=== PATIENT | female | born 1950 ===

== ENCOUNTER 2020-01-01 17:22 | Inpatient (IN) | payer MEDICAID, MEDICARE, OTHER ==
[2020-01-02 00:06] VITALS: BP 126/68
[2020-01-02] MEDS ORDERED: Lactulose 10 Gm/15 mL 30mL UDC PO PRN (00:23)
[2020-01-02] MEDS ORDERED: BUDESONIDE INH SCH (09:00)
[2020-01-02] MEDS ORDERED: [UNRECOGNIZED DRUG - OTHER] INH SCH (09:00)
[2020-01-02] MEDS ORDERED: FORMOTEROL FUMARATE INH SCH (09:00)
[2020-01-02] MEDS: NYSTATIN 100000 UNITS/GM POWD TP SCH ×2 (10:36→17:13)
[2020-01-02] MEDS: Albuterol Nebulizer 2.5mg/3mL HHN SCH ×2 (13:17→19:00)
--- NOTE | 2020-01-02 13:50 | Consultation ---
DATE OF CONSULTATION: 01/02/2020 INTERNAL MEDICINE CONSULTATION HISTORY OF PRESENT ILLNESS: We have a 69-year-old female who is transferred from [facility] for suicidal ideations. The patient was homeless in [place]. The patient has rectal pain. No nausea, vomiting, abdominal pain, or diarrhea. PAST MEDICAL HISTORY: 1. COPD. 2. Hypertension. 3. Questionable history of angina. PAST SURGICAL HISTORY: None. MEDICATIONS: List reviewed. ALLERGIES: None. SOCIAL HISTORY: The patient smokes. PHYSICAL EXAMINATION: VITAL SIGNS: Temperature is 98.1, pulse 96, respirations 20, and blood pressure is 129/75. HEENT: Normocephalic and atraumatic head exam. NECK: Supple. CARDIOVASCULAR: Regular rate and rhythm. LUNGS: Decreased breath sounds. ABDOMEN: Soft, nontender. EXTREMITIES: No edema, cyanosis or clubbing. ASSESSMENT AND PLAN: 1. Suicidal ideations. 2. Chronic obstructive pulmonary disease. 3. Hypertension. 4. Rectal pain. The patient will be started on medications, have reviewed the medical records, have discussed the care plan with the nursing staff. The patient will be started on nystatin powder for the perirectal area. The patient will continue with DuoNeb q.6 hours for COPD. The patient will continue with Norvasc 10 mg p.o. b.i.d. for blood pressure. JOB# [id number]
[2020-01-02] MEDS: Albuterol Nebulizer 2.5mg/3mL HHN PRN (16:14)
[2020-01-02] MEDS: guaiFENesin 200 MG/10 ML UDC PO PRN (17:14)
[2020-01-02] MEDS: Budesonide 0.5 Mg/2 mL Ud HHN SCH (19:00)
--- NOTE | 2020-01-02 20:29 | Psychiatric Evaluation ---
DATE OF SERVICE: HISTORY OF PRESENT ILLNESS: The patient is a 69-year-old female transferred here from [facility] on a 5250 for danger to self. The patient apparently stated that she wanted to kill herself and everyone else. The patient is extremely paranoid, responding to internal stimuli, feels that gangs such as the [employer] and [employer] wished to murder her. States that she has been compliant with her medications, but was generally unclear as to what they were exactly. MENTAL STATUS EXAMINATION: GENERAL APPEARANCE AND BEHAVIOR: The patient is resting comfortably in bed, not in acute distress. Good eye contact, cooperative in interview. Speech is normal, rate, rhythm and tone. Mood and affect: The patient describes her mood as anxious and depressed. Affect is congruent. Thought process and thought content linear and logical. The patient endorsing suicidal and homicidal ideations with command hallucinations. Insight and judgment is poor. DIAGNOSTIC IMPRESSION: Schizophrenia, undifferentiated type. PLAN: We would recommend starting the patient on her home medications and titrating while maintaining daily monitoring. JOB# [id number]
[2020-01-03] MEDS: Albuterol Nebulizer 2.5mg/3mL HHN SCH ×5 (01:17→20:14)
[2020-01-03] MEDS: Budesonide 0.5 Mg/2 mL Ud HHN SCH ×2 (06:39→19:30)
[2020-01-03] MEDS: NYSTATIN 100000 UNITS/GM POWD TP SCH ×2 (09:02→17:15)
--- NOTE | 2020-01-03 12:04 | Internal Medicine Prog Note ---
Internal Medicine Subjective - Subjective Service Date: 01/03/20 Patient seen and examined:: with staff Patient is:: awake, verbal, interactive Internal Medicine Objective - Results Recent Labs: Laboratory Last Values POC Glucose 88 MG/DL (70 - 105) 01/02/20 05:30 - Physical Exam Vitals and I&O: Vital Signs Temp 97.4 F 01/03/20 06:04 Pulse 96 01/03/20 09:00 Resp 20 01/03/20 06:04 BP 135/86 01/03/20 09:00 Pulse Ox 94 01/03/20 06:04 Intake & Output 01/02/20 01/03/20 01/03/20 18:59 06:59 18:59 Intake Total 1000 480 Balance 1000 480 Intake: Oral 1000 480 Other: # Voids 4 2 # Bowel Movements 0 0 Stool Characteristics Soft Soft Active Medications: Current Medications Acetaminophen (Tylenol) 650 mg PO Q4H PRN PRN Reason: Pain (Mild 1-3) Stop: 03/02/20 00:08 Last Admin: 01/03/20 06:40 Dose: 650 mg Albuterol Sulfate (Albuterol 2.5mg/3ml Neb Ud) 2.5 mg HHN Q6HRT [facility] Stop: 03/02/20 12:59 Last Admin: 01/03/20 06:40 Dose: 2.5 mg Albuterol Sulfate (Albuterol 2.5mg/3ml Neb Ud) 2.5 mg HHN Q4HRT PRN PRN Reason: Cough Stop: 03/02/20 10:41 Last Admin: 01/02/20 16:14 Dose: 2.5 mg Amlodipine Besylate (Norvasc) 10 mg PO BID [facility] Stop: 03/02/20 08:59 Last Admin: 01/03/20 09:00 Dose: 10 mg Benztropine Mesylate (Cogentin) 0.5 mg PO BID [facility] Stop: 03/02/20 08:59 Last Admin: 01/03/20 09:01 Dose: 0.5 mg Budesonide (Pulmicort) 0.5 mg HHN BIDRT [facility] Stop: 03/02/20 18:59 Last Admin: 01/03/20 06:39 Dose: 0.5 mg Docusate Sodium (Colace) 200 mg PO BID [facility] Stop: 03/02/20 08:59 Last Admin: 01/03/20 09:01 Dose: 200 mg Fluconazole (Diflucan) 100 mg PO DAILY [facility] Stop: 03/02/20 12:04 Last Admin: 01/03/20 09:01 Dose: 100 mg Guaifenesin (Robitussin) 200 mg PO Q4HR PRN PRN Reason: Cough or Congestion Stop: 03/02/20 11:58 Last Admin: 01/02/20 17:14 Dose: 200 mg Haloperidol (Haldol) 5 mg PO BID [facility]; Protocol Stop: 03/03/20 08:59 Last Admin: 01/03/20 09:01 Dose: 5 mg Lactulose (Cephulac) 30 gm PO TID PRN PRN Reason: constipation Stop: 03/02/20 08:59 Last Admin: 01/03/20 07:19 Dose: 30 gm Lorazepam (Ativan) 0.5 mg PO Q4HR PRN; Protocol PRN Reason: Agitation Stop: 02/01/20 00:08 Last Admin: 01/03/20 09:02 Dose: 0.5 mg Nystatin (Nystop) 100 units TP BID [facility] Stop: 03/02/20 08:59 Last Admin: 01/03/20 09:02 Dose: 100 units Zolpidem Tartrate (Ambien) 5 mg PO HS PRN PRN Reason: Insomnia Stop: 03/02/20 00:08 Last Admin: 01/02/20 21:11 Dose: 5 mg General: NAD HEENT: NC/AT Neck: Supple Lungs: CTAB Cardiovascular: RRR, Normal S1, Normal S2 Abdomen: soft, non-tender Extremities: clear Neurological: no change Internal Medicine Assmt/Plan - Assessment Assessment: 1. Tinea 2. HTN 3. COPD - Plan Plan: started diflucan 100 mg po daily started nyastatin powder continue duonebs prn for copd connor ulloa
--- NOTE | 2020-01-03 17:32 | Progress Notes ---
DATE: 01/03/2020 SUBJECTIVE: A 69-year-old female, currently coming from [facility], apparently noting history of "mental issues," "extensive voices," endorsing a high level of psychological distress, turmoil, also making statements that she wanted to kill herself and everybody else, still responding to internal stimuli, stating that she is homeless. 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 Medications were reviewed. Labs were reviewed. Vitals were reviewed. Actually, there is some mild EPS. Pill rolling tremor is noted. MENTAL STATUS EXAMINATION: Wearing a mask, a headscarf. Fair eye contact. Ongoing depression, melancholy, hopeless, despairing, ongoing voices. ASSESSMENT: This is a 69-year-old female with ongoing perceptual disturbances, depression, voices. PLAN: We will continue to monitor. I will be transitioning her over to Zyprexa, especially given the pill rolling tremors. We will monitor closely. Continue inpatient hospitalization. JOB# [id number]
[2020-01-04] MEDS: Albuterol Nebulizer 2.5mg/3mL HHN SCH ×5 (01:00→19:10)
[2020-01-04] MEDS: guaiFENesin 200 MG/10 ML UDC PO PRN ×3 (02:56→23:00)
[2020-01-04] MEDS: Budesonide 0.5 Mg/2 mL Ud HHN SCH ×2 (07:10→19:05)
[2020-01-04] MEDS: NYSTATIN 100000 UNITS/GM POWD TP SCH ×2 (08:39→16:46)
--- NOTE | 2020-01-04 13:46 | Internal Medicine Prog Note ---
Internal Medicine Subjective - Subjective Service Date: 01/04/20 Patient seen and examined:: without staff Patient is:: awake, verbal, interactive Internal Medicine Objective - Results Recent Labs: Laboratory Last Values POC Glucose 88 MG/DL (70 - 105) 01/02/20 05:30 - Physical Exam Vitals and I&O: Vital Signs Temp 96.8 F 01/04/20 06:08 Pulse 90 01/04/20 08:39 Resp 19 01/04/20 06:08 BP 127/73 01/04/20 08:39 Pulse Ox 97 01/04/20 06:08 Intake & Output 01/03/20 01/04/20 01/04/20 18:59 06:59 18:59 Intake Total 1000 Balance 1000 Intake: Oral 1000 Other: # Voids 3 # Bowel Movements 1 0 Stool Characteristics Soft Formed Soft Brown Active Medications: Current Medications Acetaminophen (Tylenol) 650 mg PO Q4H PRN PRN Reason: Pain (Mild 1-3) Stop: 03/02/20 00:08 Last Admin: 01/04/20 02:36 Dose: 650 mg Albuterol Sulfate (Albuterol 2.5mg/3ml Neb Ud) 2.5 mg HHN Q6HRT [facility] Stop: 03/02/20 12:59 Last Admin: 01/04/20 08:41 Dose: 2.5 mg Albuterol Sulfate (Albuterol 2.5mg/3ml Neb Ud) 2.5 mg HHN Q4HRT PRN PRN Reason: Cough Stop: 03/02/20 10:41 Last Admin: 01/02/20 16:14 Dose: 2.5 mg Amlodipine Besylate (Norvasc) 10 mg PO BID [facility] Stop: 03/02/20 08:59 Benztropine Mesylate (Cogentin) 0.5 mg PO BID [facility] Stop: 03/02/20 08:59 Last Admin: 01/04/20 08:40 Dose: 0.5 mg Budesonide (Pulmicort) 0.5 mg HHN BIDRT [facility] Stop: 03/02/20 18:59 Last Admin: 01/04/20 07:10 Dose: Not Given Docusate Sodium (Colace) 200 mg PO BID [facility] Stop: 03/02/20 08:59 Last Admin: 01/04/20 08:39 Dose: 200 mg Fluconazole (Diflucan) 100 mg PO DAILY [facility] Stop: 03/02/20 12:04 Last Admin: 01/04/20 08:39 Dose: 100 mg Guaifenesin (Robitussin) 200 mg PO Q4HR PRN PRN Reason: Cough or Congestion Stop: 03/02/20 11:58 Last Admin: 01/04/20 11:28 Dose: 200 mg Lactulose (Cephulac) 30 gm PO TID PRN PRN Reason: constipation Stop: 03/02/20 08:59 Last Admin: 01/03/20 07:19 Dose: 30 gm Lorazepam (Ativan) 0.5 mg PO Q4HR PRN; Protocol PRN Reason: Agitation Stop: 02/01/20 00:08 Last Admin: 01/03/20 21:21 Dose: 0.5 mg Nystatin (Nystop) 100 units TP BID [facility] Stop: 03/02/20 08:59 Last Admin: 01/04/20 08:39 Dose: 100 units Olanzapine (Zyprexa) 5 mg PO HS [facility]; Protocol Stop: 03/03/20 20:59 Zolpidem Tartrate (Ambien) 5 mg PO HS PRN PRN Reason: Insomnia Stop: 03/02/20 00:08 Last Admin: 01/03/20 20:15 Dose: 5 mg General: NAD HEENT: NC/AT Neck: Supple Lungs: CTAB Cardiovascular: RRR, Normal S1, Normal S2 Abdomen: soft, non-tender Extremities: clear Neurological: no change Other physical findings: erythematous area on pictures Internal Medicine Assmt/Plan - Assessment Assessment: 1. Tinea 2. HTN 3. COPD - Plan Plan: diflucan 100 mg po daily nyastatin powder continue duonebs prn for copd rash is improving slowly. will check lfts to monitor side effects of diflucan
--- NOTE | 2020-01-04 23:09 | Progress Notes ---
DATE: 01/04/2020 Case was discussed with staff of the patient, reviewed records. This is a 69-year-old female who was admitted on 01/01/2020, transferred from [facility] on a 5250 hold for danger to self. The patient reports that she wanted to kill herself and everyone else. The patient was very paranoid, responding to internal stimuli. She felt again that someone wants to murder her. She stated that she has been compliant with her medication, was generally unclear to what they were exactly. The patient when I talked to her, she reported that she is schizophrenic that she is delusional. She believed people are trying to harm her. MENTAL STATUS EXAMINATION: The patient is appropriately dressed, not very well groomed. She was intrusive. She was alert, unable to tell me the date, where she is, why she is delusional. She believes people are trying to harm her. She is unpredictable, impulsive, looking disheveled. Dr. Case initiated her on Haldol that was discontinued and changed to Zyprexa 5 mg at bedtime yesterday, changed by Dr. Sanchez yesterday. The patient continues to be unpredictable, impulsive, unable to make safe plan for self-care. No side effects with the medication, no sedation, no nausea. The patient with multiple prior hospitalizations. The patient was found yesterday to have pill rolling tremors. Today, she is doing better with ongoing psychotic symptoms and we will continue outpatient group therapy, milieu therapy, adjust medication as needed. JOB# [id number] JAMI
[2020-01-05] MEDS: Albuterol Nebulizer 2.5mg/3mL HHN SCH ×4 (01:15→18:10)
[2020-01-05] MEDS: Budesonide 0.5 Mg/2 mL Ud HHN SCH ×2 (06:49→18:18)
[2020-01-05] MEDS: NYSTATIN 100000 UNITS/GM POWD TP SCH ×2 (08:57→16:34)
--- NOTE | 2020-01-05 15:48 | Internal Medicine Prog Note ---
Internal Medicine Subjective - Subjective Service Date: 01/05/20 Patient seen and examined:: without staff Patient is:: awake, verbal, interactive Internal Medicine Objective - Results Recent Labs: Laboratory Last Values POC Glucose 88 MG/DL (70 - 105) 01/02/20 05:30 - Physical Exam Vitals and I&O: Vital Signs Temp 96.1 F 01/05/20 14:00 Pulse 102 01/05/20 14:00 Resp 20 01/05/20 14:00 BP 122/64 01/05/20 14:00 Pulse Ox 96 01/05/20 14:00 Intake & Output 01/04/20 01/05/20 01/05/20 18:59 06:59 18:59 Intake Total 1200 360 Balance 1200 360 Intake: Oral 1200 360 Other: # Voids 3 2 # Bowel Movements 1 0 Stool Characteristics Soft Soft Soft Active Medications: Current Medications Acetaminophen (Tylenol) 650 mg PO Q4H PRN PRN Reason: Pain (Mild 1-3) Stop: 03/02/20 00:08 Last Admin: 01/05/20 13:57 Dose: 650 mg Albuterol Sulfate (Albuterol 2.5mg/3ml Neb Ud) 2.5 mg HHN Q6HRT [facility] Stop: 03/02/20 12:59 Last Admin: 01/05/20 12:10 Dose: 2.5 mg Albuterol Sulfate (Albuterol 2.5mg/3ml Neb Ud) 2.5 mg HHN Q4HRT PRN PRN Reason: Cough Stop: 03/02/20 10:41 Last Admin: 01/02/20 16:14 Dose: 2.5 mg Amlodipine Besylate (Norvasc) 10 mg PO BID [facility] Stop: 03/02/20 08:59 Last Admin: 01/05/20 08:57 Dose: 10 mg Benztropine Mesylate (Cogentin) 0.5 mg PO BID [facility] Stop: 03/02/20 08:59 Last Admin: 01/05/20 08:57 Dose: 0.5 mg Budesonide (Pulmicort) 0.5 mg HHN BIDRT [facility] Stop: 03/02/20 18:59 Last Admin: 01/05/20 06:49 Dose: Not Given Docusate Sodium (Colace) 200 mg PO BID [facility] Stop: 03/02/20 08:59 Last Admin: 01/05/20 08:57 Dose: 200 mg Fluconazole (Diflucan) 100 mg PO DAILY [facility] Stop: 03/02/20 12:04 Last Admin: 01/05/20 08:57 Dose: 100 mg Guaifenesin (Robitussin) 200 mg PO Q4HR PRN PRN Reason: Cough or Congestion Stop: 03/02/20 11:58 Last Admin: 01/04/20 23:00 Dose: 200 mg Lactulose (Cephulac) 30 gm PO TID PRN PRN Reason: constipation Stop: 03/02/20 08:59 Last Admin: 01/03/20 07:19 Dose: 30 gm Lorazepam (Ativan) 0.5 mg PO Q4HR PRN; Protocol PRN Reason: Agitation Stop: 02/01/20 00:08 Last Admin: 01/04/20 16:46 Dose: 0.5 mg Nystatin (Nystop) 100 units TP BID [facility] Stop: 01/09/20 08:59 Last Admin: 01/05/20 08:57 Dose: 100 units Olanzapine (Zyprexa) 5 mg PO HS [facility]; Protocol Stop: 03/03/20 20:59 Zolpidem Tartrate (Ambien) 5 mg PO HS PRN PRN Reason: Insomnia Stop: 03/02/20 00:08 Last Admin: 01/04/20 20:13 Dose: 5 mg General: NAD HEENT: NC/AT Neck: Supple Lungs: CTAB Cardiovascular: RRR, Normal S1, Normal S2 Abdomen: soft, non-tender Extremities: clear Neurological: no change Internal Medicine Assmt/Plan - Assessment Assessment: 1. Tinea 2. HTN 3. COPD - Plan Plan: diflucan 100 mg po daily nyastatin powder continue duonebs prn for copd rash is improving slowly. will check lfts to monitor side effects of diflucan d/w r.n. wound is slowly healing will add keflex 500 mg tid
--- NOTE | 2020-01-05 17:15 | Progress Notes ---
DATE: FOLLOWUP PROGRESS NOTE Case was discussed with staff of the patient, reviewed records. The patient continues to be delusional beleives people are trying to harm her. She was unable to tell me the date. She reports that she has been tried on many medications and when I asked her about if she is aware of any specific medication that help her, she said they all help. She is currently on olanzapine 5 mg at bedtime. Apparently, it was not given yet. No side effects with the medication, no sedation, no nausea, no extrapyramidal symptoms and will continue outpatient group therapy, milieu therapy, and adjust the medication as needed. JOB# [id number] JAMI
[2020-01-06] MEDS: Albuterol Nebulizer 2.5mg/3mL HHN SCH ×4 (01:24→18:07)
[2020-01-06] MEDS: Budesonide 0.5 Mg/2 mL Ud HHN SCH ×2 (07:35→18:07)
[2020-01-06] MEDS: NYSTATIN 100000 UNITS/GM POWD TP SCH ×2 (08:25→17:02)
--- NOTE | 2020-01-06 09:42 | Progress Notes ---
DATE: 01/06/2020 SUBJECTIVE: Case was discussed with staff of the patient, reviewed records. The patient apparently did not start the Zyprexa until yesterday. She is on 5 mg at bedtime. Today, she is alert. She is more pleasant. She continues to feel people trying to harm her. However, she is much more animated today. She says she slept better, eating better. MENTAL STATUS EXAMINATION: Appropriately dressed, not well groomed, alert, and unable to tell me the day. She report that she believes people are trying to harm her. Thoughts are concrete. Speech is coherent. No suicide. No current intent to harm herself or anyone and no side effects with the medication, no sedation, no nausea, no extrapyramidal symptoms. ASSESSMENT: The patient is still gravely disabled and unable to make safe plan for self-care, still psychotic. PLAN: We will continue outpatient group therapy, milieu therapy, adjust medication as needed. JOB# [id number]
[2020-01-06] MEDS: guaiFENesin 200 MG/10 ML UDC PO PRN ×2 (14:06→23:18)
--- NOTE | 2020-01-06 14:14 | Internal Medicine Prog Note ---
Internal Medicine Subjective - Subjective Service Date: 01/06/20 Patient seen and examined:: without staff Patient is:: awake, verbal, interactive Internal Medicine Objective - Results Recent Labs: Laboratory Last Values POC Glucose 88 MG/DL (70 - 105) 01/02/20 05:30 - Physical Exam Vitals and I&O: Vital Signs Temp 97.9 F 01/06/20 05:57 Pulse 95 01/06/20 08:27 Resp 20 01/06/20 08:00 BP 130/78 01/06/20 08:27 Pulse Ox 96 01/06/20 05:57 Intake & Output 01/05/20 01/06/20 01/06/20 18:59 06:59 18:59 Intake Total 1320 120 Balance 1320 120 Intake: Oral 1080 120 Other 240 Other: # Voids 3 3 # Bowel Movements 0 0 Stool Characteristics Soft Soft Soft Brown Active Medications: Current Medications Acetaminophen (Tylenol) 650 mg PO Q4H PRN PRN Reason: Pain (Mild 1-3) Stop: 03/02/20 00:08 Last Admin: 01/06/20 09:49 Dose: 650 mg Albuterol Sulfate (Albuterol 2.5mg/3ml Neb Ud) 2.5 mg HHN Q6HRT [facility] Stop: 03/02/20 12:59 Last Admin: 01/06/20 13:10 Dose: 2.5 mg Albuterol Sulfate (Albuterol 2.5mg/3ml Neb Ud) 2.5 mg HHN Q4HRT PRN PRN Reason: Cough Stop: 03/02/20 10:41 Last Admin: 01/02/20 16:14 Dose: 2.5 mg Amlodipine Besylate (Norvasc) 10 mg PO BID [facility] Stop: 03/02/20 08:59 Last Admin: 01/06/20 08:27 Dose: 10 mg Benztropine Mesylate (Cogentin) 0.5 mg PO BID [facility] Stop: 03/02/20 08:59 Last Admin: 01/06/20 08:26 Dose: 0.5 mg Budesonide (Pulmicort) 0.5 mg HHN BIDRT [facility] Stop: 03/02/20 18:59 Last Admin: 01/06/20 07:35 Dose: 0.5 mg Cephalexin Monohydrate (Keflex) 500 mg PO QID [facility] Stop: 03/05/20 16:59 Last Admin: 01/06/20 13:10 Dose: 500 mg Docusate Sodium (Colace) 200 mg PO BID [facility] Stop: 03/02/20 08:59 Last Admin: 01/06/20 08:26 Dose: 200 mg Fluconazole (Diflucan) 100 mg PO DAILY [facility] Stop: 03/02/20 12:04 Last Admin: 01/06/20 08:27 Dose: 100 mg Guaifenesin (Robitussin) 200 mg PO Q4HR PRN PRN Reason: Cough or Congestion Stop: 03/02/20 11:58 Last Admin: 01/06/20 14:06 Dose: 200 mg Lactulose (Cephulac) 30 gm PO TID PRN PRN Reason: constipation Stop: 03/02/20 08:59 Last Admin: 01/03/20 07:19 Dose: 30 gm Lorazepam (Ativan) 0.5 mg PO Q4HR PRN; Protocol PRN Reason: Agitation Stop: 02/01/20 00:08 Last Admin: 01/04/20 16:46 Dose: 0.5 mg Nystatin (Nystop) 100 units TP BID [facility] Stop: 01/09/20 08:59 Last Admin: 01/06/20 08:25 Dose: 100 units Olanzapine (Zyprexa) 5 mg PO HS [facility]; Protocol Stop: 03/03/20 20:59 Last Admin: 01/05/20 20:18 Dose: 5 mg Zolpidem Tartrate (Ambien) 5 mg PO HS PRN PRN Reason: Insomnia Stop: 03/02/20 00:08 Last Admin: 01/05/20 20:18 Dose: 5 mg General: NAD HEENT: NC/AT Neck: Supple Lungs: CTAB Cardiovascular: RRR, Normal S1, Normal S2 Abdomen: soft, non-tender Extremities: clear Neurological: no change Internal Medicine Assmt/Plan - Assessment Assessment: 1. Tinea 2. HTN 3. COPD 4. Cellulitis - Plan Plan: continue keflex for cellulitis continue diflucan for tinea rash is slowly improving d/w r.n.
[2020-01-07] MEDS: Albuterol Nebulizer 2.5mg/3mL HHN SCH ×4 (01:00→18:39)
[2020-01-07] MEDS: Albuterol Nebulizer 2.5mg/3mL HHN PRN (03:29)
[2020-01-07] MEDS: Budesonide 0.5 Mg/2 mL Ud HHN SCH ×2 (07:06→18:38)
[2020-01-07] MEDS: NYSTATIN 100000 UNITS/GM POWD TP SCH ×2 (09:06→17:17)
--- NOTE | 2020-01-07 14:23 | Internal Medicine Prog Note ---
Internal Medicine Subjective - Subjective Service Date: 01/07/20 Patient is:: awake, verbal, interactive Internal Medicine Objective - Results Recent Labs: Laboratory Last Values POC Glucose 88 MG/DL (70 - 105) 01/02/20 05:30 - Physical Exam Vitals and I&O: Vital Signs Temp 97.2 F 01/07/20 06:16 Pulse 87 01/07/20 09:04 Resp 20 01/07/20 06:16 BP 125/76 01/07/20 09:04 Pulse Ox 97 01/07/20 06:16 Intake & Output 01/06/20 01/07/20 01/07/20 18:59 06:59 18:59 Intake Total 1100 120 Balance 1100 120 Intake: Oral 1100 120 Other: # Voids 3 1 # Bowel Movements 0 0 Stool Characteristics Soft Soft Brown Active Medications: Current Medications Acetaminophen (Tylenol) 650 mg PO Q4H PRN PRN Reason: Pain (Mild 1-3) Stop: 03/02/20 00:08 Last Admin: 01/07/20 13:57 Dose: 650 mg Albuterol Sulfate (Albuterol 2.5mg/3ml Neb Ud) 2.5 mg HHN Q6HRT [facility] Stop: 03/02/20 12:59 Last Admin: 01/07/20 13:57 Dose: 2.5 mg Albuterol Sulfate (Albuterol 2.5mg/3ml Neb Ud) 2.5 mg HHN Q4HRT PRN PRN Reason: Cough Stop: 03/02/20 10:41 Last Admin: 01/07/20 03:29 Dose: 2.5 mg Amlodipine Besylate (Norvasc) 10 mg PO BID [facility] Stop: 03/02/20 08:59 Last Admin: 01/07/20 09:04 Dose: 10 mg Benztropine Mesylate (Cogentin) 0.5 mg PO BID [facility] Stop: 03/02/20 08:59 Last Admin: 01/07/20 09:05 Dose: 0.5 mg Budesonide (Pulmicort) 0.5 mg HHN BIDRT [facility] Stop: 03/02/20 18:59 Last Admin: 01/07/20 07:06 Dose: Not Given Cephalexin Monohydrate (Keflex) 500 mg PO QID [facility] Stop: 03/05/20 16:59 Last Admin: 01/07/20 13:57 Dose: 500 mg Docusate Sodium (Colace) 200 mg PO BID [facility] Stop: 03/02/20 08:59 Last Admin: 01/07/20 09:06 Dose: 200 mg Fluconazole (Diflucan) 100 mg PO DAILY [facility] Stop: 03/02/20 12:04 Last Admin: 01/07/20 09:05 Dose: 100 mg Guaifenesin (Robitussin) 200 mg PO Q4HR PRN PRN Reason: Cough or Congestion Stop: 03/02/20 11:58 Last Admin: 01/06/20 23:18 Dose: 200 mg Lactulose (Cephulac) 30 gm PO TID PRN PRN Reason: constipation Stop: 03/02/20 08:59 Last Admin: 01/03/20 07:19 Dose: 30 gm Lorazepam (Ativan) 0.5 mg PO Q4HR PRN; Protocol PRN Reason: Agitation Stop: 02/01/20 00:08 Last Admin: 01/04/20 16:46 Dose: 0.5 mg Nystatin (Nystop) 100 units TP BID [facility] Stop: 01/09/20 08:59 Last Admin: 01/07/20 09:06 Dose: 100 units Olanzapine (Zyprexa) 5 mg PO HS [facility]; Protocol Stop: 03/03/20 20:59 Last Admin: 01/06/20 20:52 Dose: 5 mg Zolpidem Tartrate (Ambien) 5 mg PO HS PRN PRN Reason: Insomnia Stop: 03/02/20 00:08 Last Admin: 01/06/20 20:55 Dose: 5 mg General: NAD HEENT: NC/AT Neck: Supple Lungs: CTAB Cardiovascular: RRR, Normal S1, Normal S2 Abdomen: soft, non-tender Extremities: clear Neurological: no change Internal Medicine Assmt/Plan - Assessment Assessment: 1. Tinea 2. HTN 3. COPD 4. Cellulitis - Plan Plan: continue keflex for cellulitis continue diflucan for tinea rash is slowly improving d/w r.n.
[2020-01-07] MEDS: guaiFENesin 200 MG/10 ML UDC PO PRN (20:25)
--- NOTE | 2020-01-07 20:53 | Progress Notes ---
DATE: 01/07/2020 SUBJECTIVE: Case was discussed with staff of the patient, reviewed records. The patient continues to look disheveled, disorganized, internally preoccupied, paranoid, but however, she is much more pleasant. She is easy to redirect. She continues to report feeling people are trying to harm her, but she said these are not as prominent. They were able to find her a place to stay at [facility] to go there when she is stable. The patient is compliant with the medication, no side effects, no sedation, no nausea, no extrapyramidal symptoms. MENTAL STATUS EXAMINATION: Appropriately dressed, not very groomed. She is alert. She is not sure of the date. She believes people or trying to harm herself, thoughts are concrete. Speech is coherent. She denies any current intent to harm herself or anyone. No visual hallucination, no paranoia. No side effects, no sedation, no nausea, no extrapyramidal symptoms. ASSESSMENT AND PLAN: The patient continues to be gravely disabled and continues to need further stabilization and we will continue to work with the patient in group therapy, milieu therapy, and adjust the medication as needed. JOB# [id number]
[2020-01-08] MEDS: Albuterol Nebulizer 2.5mg/3mL HHN SCH ×4 (01:07→19:17)
[2020-01-08] MEDS: Budesonide 0.5 Mg/2 mL Ud HHN SCH ×2 (06:25→19:34)
[2020-01-08] MEDS: NYSTATIN 100000 UNITS/GM POWD TP SCH ×2 (11:04→17:58)
[2020-01-08] MEDS: guaiFENesin 200 MG/10 ML UDC PO PRN ×2 (11:11→17:57)
--- NOTE | 2020-01-08 12:30 | Internal Medicine Prog Note ---
Internal Medicine Subjective - Subjective Service Date: 01/08/20 Patient seen and examined:: without staff Patient is:: awake, verbal, interactive Per staff patient has:: no adverse event, no episodes of fall Internal Medicine Objective - Results Recent Labs: Laboratory Last Values POC Glucose 88 MG/DL (70 - 105) 01/02/20 05:30 - Physical Exam Vitals and I&O: Vital Signs Temp 98.1 F 01/08/20 06:25 Pulse 84 01/08/20 09:37 Resp 17 01/08/20 08:00 BP 118/64 01/08/20 09:37 Pulse Ox 98 01/08/20 06:25 Intake & Output 01/07/20 01/08/20 01/08/20 18:59 06:59 18:59 Intake Total 950 120 Balance 950 120 Intake: Oral 950 120 Other: # Voids 3 3 # Bowel Movements 1 Stool Characteristics Soft Soft Brown Brown Active Medications: Current Medications Acetaminophen (Tylenol) 650 mg PO Q4H PRN PRN Reason: Pain (Mild 1-3) Stop: 03/02/20 00:08 Last Admin: 01/08/20 11:03 Dose: 650 mg Albuterol Sulfate (Albuterol 2.5mg/3ml Neb Ud) 2.5 mg HHN Q6HRT [facility] Stop: 03/02/20 12:59 Last Admin: 01/08/20 06:08 Dose: 2.5 mg Albuterol Sulfate (Albuterol 2.5mg/3ml Neb Ud) 2.5 mg HHN Q4HRT PRN PRN Reason: Cough Stop: 03/02/20 10:41 Last Admin: 01/07/20 03:29 Dose: 2.5 mg Amlodipine Besylate (Norvasc) 10 mg PO BID [facility] Stop: 03/02/20 08:59 Last Admin: 01/08/20 09:37 Dose: 10 mg Benztropine Mesylate (Cogentin) 0.5 mg PO BID [facility] Stop: 03/02/20 08:59 Last Admin: 01/08/20 09:29 Dose: 0.5 mg Budesonide (Pulmicort) 0.5 mg HHN BIDRT [facility] Stop: 03/02/20 18:59 Last Admin: 01/08/20 06:25 Dose: 0.5 mg Cephalexin Monohydrate (Keflex) 500 mg PO QID [facility] Stop: 03/05/20 16:59 Last Admin: 01/08/20 09:28 Dose: 500 mg Docusate Sodium (Colace) 200 mg PO BID [facility] Stop: 03/02/20 08:59 Last Admin: 01/08/20 09:29 Dose: 200 mg Fluconazole (Diflucan) 100 mg PO DAILY [facility] Stop: 03/02/20 12:04 Last Admin: 01/08/20 09:28 Dose: 100 mg Guaifenesin (Robitussin) 200 mg PO Q4HR PRN PRN Reason: Cough or Congestion Stop: 03/02/20 11:58 Last Admin: 01/08/20 11:11 Dose: 200 mg Lactulose (Cephulac) 30 gm PO TID PRN PRN Reason: constipation Stop: 03/02/20 08:59 Last Admin: 01/03/20 07:19 Dose: 30 gm Lorazepam (Ativan) 0.5 mg PO Q4HR PRN; Protocol PRN Reason: Agitation Stop: 02/01/20 00:08 Last Admin: 01/04/20 16:46 Dose: 0.5 mg Nystatin (Nystop) 100 units TP BID [facility] Stop: 01/09/20 08:59 Last Admin: 01/08/20 11:04 Dose: 100 units Olanzapine (Zyprexa) 5 mg PO HS [facility]; Protocol Stop: 03/03/20 20:59 Last Admin: 01/07/20 20:25 Dose: 5 mg Zolpidem Tartrate (Ambien) 5 mg PO HS PRN PRN Reason: Insomnia Stop: 03/02/20 00:08 Last Admin: 01/07/20 20:26 Dose: 5 mg General: NAD HEENT: NC/AT Neck: Supple Lungs: CTAB Cardiovascular: RRR, Normal S1, Normal S2 Abdomen: soft, non-tender Extremities: clear Neurological: no change Internal Medicine Assmt/Plan - Assessment Assessment: 1. Tinea 2. HTN 3. COPD 4. Cellulitis - Plan Plan: continue keflex for cellulitis continue diflucan for tinea rash is slowly improving await results for LFTs Nutritional Asmnt/Malnutr-PDOC - Dietary Evaluation Malnutrition Findings (Please click <Entered> for more info): Nutritional Asmnt/Malnutrition Start: 01/07/20 11: 23 Text: Status: Complete Freq: Protocol: Document 01/07/20 15:19 JACKELIN (Rec: 01/07/20 15:22 JACKELIN [id number]) Nutritional Asmnt/Malnutrition Patient General Information Nutritional Screening Low Risk Diagnosis Psychosis with Suicidal Ideations Pertinent Medical Hx/Surgical Hx COPD, HTN Subjective Information Pt is a 69-year-old male admitted on 12/31 d/t suicidal ideations, pt noted to be homeless. Pt is eating an estimated 100% of meals since admit date (x5 days) Per Meal/ Nutrition Activity Record. Dietary is currently providing an estimated 1800 kcals and 60 gm Pro to meet 100% kcal and 92% Pro needs. Per wound care note (01/04), Pt has rash in perineal and inguinal areas. Antifungal powder being used. 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 Anthropometrics HT: 54 WT: 140 LB (63.64 kg) BMI: 24.04 (normal) GI/ Skin Integrity GI: WNL, Soft, Flat, Non- tender BM: 01/03 x1 I/O: 1220/Not Noted Skin: Rash, buttock wounds scabbed over Ochoa: 22 Diet Order: Regular Estimated Energy Needs: ( Geriatric, CBW) 1598-3971 kcals (25-30 kcals/ kg) 65-75g Pro (1.0-1.2 g/kg) 1629-8581 ml (25-30 ml/kg) Current Diet Order/ Nutrition Support Regular Pertinent Medications Albuterol, Pulmicort, Colace, Cephulac Pertinent Labs 01/01: HDL 44, A1c 5.4% POC Glucose 2: 88 Nutritional Hx/Data Height 1.63 m Height (Calculated Centimeters) 162.6 Current Weight (lbs) 63.503 kg Weight (Calculated Kilograms) 63.5 Weight (Calculated Grams) [address]60.[address] [place] Body Weight 120 LB (54.55 kg) % [place] Body Weight 117 Body Mass Index (BMI) 24.0 Weight Status Approriate GI Symptoms Last BM 01/03 x1 Skin Integrity/Comment: Skin: Rash, buttock wounds scabbed over Ochoa: 22 Per wound care note (01/04), Pt has rash in perineal and inguinal areas. Antifungal powder being used. 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 Current %PO Good (75-100%) Estimated Nutritional Goals BEE in Kcals: Using Current wt Calories/Kcals/Kg 25-30 Kcals Calculated 2029-2088 Protein: Using Current wt Protein g/k.0-1.2 Protein Calculated 65-75 Fluid: ml 5947-8535 ml (25-30 ml/kg) Nutritional Problem No current Nutrition Prob Problem No nutrition diagnosis at this time. Etiology N/A Signs/Symptoms: N/A Malnutrition Related to Morbid Obesity Malnutrition related to morbid obesity No Intervention/Recommendation Comments Continue regular diet as tolerated. Expected Outcomes/Goals Expected Outcomes/Goals 1.PO intake to continue to meet >75% of estimated nutritional needs. 2.Monitor PO intake, wt, nutrition related labs, and skin integrity to trend WNL. 3.F/U as low risk in 7-10 days , 01/13-01/16.
--- NOTE | 2020-01-08 21:06 | Progress Notes ---
DATE: 01/08/2020 Case was discussed with staff of the patient, reviewed records. The patient has been more cooperative. She is sleeping better, eating better. She continues to be delusional, but she said it is not as prominent. She is calmer, more relaxed, sleeping better, eating better. MENTAL STATUS EXAMINATION: The patient is appropriately dressed, not very groomed. She is alert, unable to tell me the date, but she sometimes believes people are trying to harm her, but these thoughts are fading away. She is sleeping well, eating well. No suicidal ideation, no homicidal ideation. No decrease paranoia, no side effects. ASSESSMENT: The patient is needing placement, at times seemed like the staff already was able to find a placement for her at [facility] and no side effects with the medication, no sedation, no nausea, no extrapyramidal symptoms. We will continue the patient in group therapy, milieu therapy, and adjust medications as needed. [facility]# [id number] JAMI
[2020-01-09] MEDS: Albuterol Nebulizer 2.5mg/3mL HHN SCH ×4 (00:42→18:05)
[2020-01-09] MEDS: guaiFENesin 200 MG/10 ML UDC PO PRN (01:05)
[2020-01-09] MEDS: Budesonide 0.5 Mg/2 mL Ud HHN SCH ×2 (06:20→18:05)
--- NOTE | 2020-01-09 20:38 | Psych Progress Note ---
Psych Progress Note - Intro Date of Progress Note: 01/09/20 - Assessment Assessment: Patient interviewed Case discussed with staff chart records reviewed. The patient continues to be somewhat confused and making bizarre delusional statements. Per staff the patient has been responding to internal stimuli. As she appears to be tolerating her medications well. There appears to be no side effects. The patient has no plan for self-care at this time. - Vitals, I&O Vitals: Vital Signs - 24 hr 01/09/20 01/09/20 01/09/20 06:35 08:00 09:15 Temp 97.8 F HR 87 87 RR 20 17 BP 144/75 144/75 O2 Sat % 98 01/09/20 01/09/20 01/09/20 14:00 17:30 19:58 Temp 96.5 F 98 F HR 89 89 97 RR 20 20 BP 135/78 135/78 138/76 O2 Sat % 96 97 - Objective Psych General Appearance: Report: No acute distress Psych Behavior: Report: Alert Psych Speech: Report: Mumbled Psych Mood: Report: Anxious Psych Affect: Report: Anxious Psych Cognition: Report: Confused Psych Insight: Report: Impaired Psych Judgement: Report: Impaired - Plan Plan: Continue medications, continue monitoring behavior. Continue current treatment plan. - Review of Relevant Data Review of Relevant Data: I have reviewed the following items and time consuelo (where applicable) has been applied. Psych Data Reviewed: Vitals - Medications Current Medications: Current Medications Acetaminophen (Tylenol) 650 mg PO Q4H PRN PRN Reason: Pain (Mild 1-3) Stop: 03/02/20 00:08 Last Admin: 01/09/20 13:25 Dose: 650 mg Albuterol Sulfate (Albuterol 2.5mg/3ml Neb Ud) 2.5 mg HHN Q6HRT [facility] Stop: 03/02/20 12:59 Last Admin: 01/09/20 18:05 Dose: 2.5 mg Albuterol Sulfate (Albuterol 2.5mg/3ml Neb Ud) 2.5 mg HHN Q4HRT PRN PRN Reason: Cough Stop: 03/02/20 10:41 Last Admin: 01/07/20 03:29 Dose: 2.5 mg Amlodipine Besylate (Norvasc) 10 mg PO BID [facility] Stop: 03/02/20 08:59 Last Admin: 01/09/20 17:30 Dose: 10 mg Benztropine Mesylate (Cogentin) 0.5 mg PO BID [facility] Stop: 03/02/20 08:59 Last Admin: 01/09/20 17:30 Dose: 0.5 mg Budesonide (Pulmicort) 0.5 mg HHN BIDRT [facility] Stop: 03/02/20 18:59 Last Admin: 01/09/20 18:05 Dose: 0.5 mg Cephalexin Monohydrate (Keflex) 500 mg PO QID [facility] Stop: 03/05/20 16:59 Last Admin: 01/09/20 17:30 Dose: 500 mg Docusate Sodium (Colace) 200 mg PO BID [facility] Stop: 03/02/20 08:59 Last Admin: 01/09/20 17:30 Dose: 200 mg Guaifenesin (Robitussin) 200 mg PO Q4HR PRN PRN Reason: Cough or Congestion Stop: 03/02/20 11:58 Last Admin: 01/09/20 01:05 Dose: 200 mg Lactulose (Cephulac) 30 gm PO TID PRN PRN Reason: constipation Stop: 03/02/20 08:59 Last Admin: 01/03/20 07:19 Dose: 30 gm Lorazepam (Ativan) 0.5 mg PO Q4HR PRN; Protocol PRN Reason: Agitation Stop: 02/01/20 00:08 Last Admin: 01/04/20 16:46 Dose: 0.5 mg Olanzapine (Zyprexa) 5 mg PO HS [facility]; Protocol Stop: 03/03/20 20:59 Last Admin: 01/08/20 20:28 Dose: 5 mg Zolpidem Tartrate (Ambien) 5 mg PO HS PRN PRN Reason: Insomnia Stop: 03/02/20 00:08 Last Admin: 01/08/20 20:29 Dose: 5 mg
[2020-01-10] MEDS: Albuterol Nebulizer 2.5mg/3mL HHN SCH ×3 (00:35→12:31)
[2020-01-10] MEDS: guaiFENesin 200 MG/10 ML UDC PO PRN ×2 (02:53→21:29)
[2020-01-10] MEDS: Budesonide 0.5 Mg/2 mL Ud HHN SCH (06:30)
--- NOTE | 2020-01-10 19:07 | Psych Progress Note ---
Psych Progress Note - Intro Date of Progress Note: 01/10/20 - Assessment Assessment: Patient interviewed Case discussed with staff chart records reviewed. The patient continues to be somewhat confused and making bizarre delusional statements. Per staff the patient has been responding to internal stimuli and very anxious As she appears to be tolerating her medications well. There appears to be no side effects. The patient has no plan for self-care at this time. - Vitals, I&O Vitals: Vital Signs - 24 hr 01/09/20 01/09/20 01/10/20 19:58 20:00 06:17 Temp 98 F 97.5 F HR 97 73 RR 20 17 20 BP 138/76 148/62 O2 Sat % 97 95 01/10/20 01/10/20 01/10/20 07:31 08:32 14:00 Temp 96.3 F HR 73 89 RR 17 20 BP 148/62 134/71 O2 Sat % 97 01/10/20 16:33 Temp HR 89 RR BP 134/71 O2 Sat % - Objective Psych General Appearance: Report: No acute distress Psych Behavior: Report: Alert Psych Speech: Report: Mumbled Psych Mood: Report: Anxious Psych Affect: Report: Anxious Psych Cognition: Report: Confused Psych Insight: Report: Impaired Psych Judgement: Report: Impaired - Plan Plan: Continue medications, continue monitoring behavior. Continue current treatment plan. - Review of Relevant Data Review of Relevant Data: I have reviewed the following items and time consuelo (where applicable) has been applied. - Medications Current Medications: Current Medications Acetaminophen (Tylenol) 650 mg PO Q4H PRN PRN Reason: Pain (Mild 1-3) Stop: 03/02/20 00:08 Last Admin: 01/10/20 08:54 Dose: 650 mg Albuterol Sulfate (Albuterol 2.5mg/3ml Neb Ud) 2.5 mg HHN Q6HRT [facility] Stop: 03/02/20 12:59 Last Admin: 01/10/20 12:31 Dose: 2.5 mg Albuterol Sulfate (Albuterol 2.5mg/3ml Neb Ud) 2.5 mg HHN Q4HRT PRN PRN Reason: Cough Stop: 03/02/20 10:41 Last Admin: 01/07/20 03:29 Dose: 2.5 mg Amlodipine Besylate (Norvasc) 10 mg PO BID [facility] Stop: 03/02/20 08:59 Last Admin: 01/10/20 16:33 Dose: 10 mg Benztropine Mesylate (Cogentin) 0.5 mg PO BID [facility] Stop: 03/02/20 08:59 Last Admin: 01/10/20 16:37 Dose: 0.5 mg Budesonide (Pulmicort) 0.5 mg HHN BIDRT [facility] Stop: 03/02/20 18:59 Last Admin: 01/10/20 06:30 Dose: 0.5 mg Cephalexin Monohydrate (Keflex) 500 mg PO QID [facility] Stop: 03/05/20 16:59 Last Admin: 01/10/20 16:37 Dose: 500 mg Docusate Sodium (Colace) 200 mg PO BID [facility] Stop: 03/02/20 08:59 Last Admin: 01/10/20 16:33 Dose: 200 mg Guaifenesin (Robitussin) 200 mg PO Q4HR PRN PRN Reason: Cough or Congestion Stop: 03/02/20 11:58 Last Admin: 01/10/20 02:53 Dose: 200 mg Lactulose (Cephulac) 30 gm PO TID PRN PRN Reason: constipation Stop: 03/02/20 08:59 Last Admin: 01/03/20 07:19 Dose: 30 gm Lorazepam (Ativan) 0.5 mg PO Q4HR PRN; Protocol PRN Reason: Agitation Stop: 02/01/20 00:08 Last Admin: 01/10/20 02:54 Dose: 0.5 mg Olanzapine (Zyprexa) 5 mg PO HS [facility]; Protocol Stop: 03/03/20 20:59 Last Admin: 01/09/20 20:44 Dose: 5 mg Zolpidem Tartrate (Ambien) 5 mg PO HS PRN PRN Reason: Insomnia Stop: 03/02/20 00:08 Last Admin: 01/09/20 20:44 Dose: 5 mg
[2020-01-11] MEDS: Albuterol Nebulizer 2.5mg/3mL HHN SCH ×4 (00:56→13:06)
[2020-01-11] MEDS: guaiFENesin 200 MG/10 ML UDC PO PRN (02:32)
[2020-01-11] MEDS: Budesonide 0.5 Mg/2 mL Ud HHN SCH ×2 (06:10→08:45)
--- NOTE | 2020-01-11 11:25 | Internal Medicine Prog Note ---
Internal Medicine Subjective - Subjective Service Date: 01/11/20 Patient is:: awake, verbal, interactive Per staff patient has:: no adverse event, no episodes of fall Internal Medicine Objective - Results Recent Labs: Laboratory Last Values POC Glucose 88 MG/DL (70 - 105) 01/02/20 05:30 - Physical Exam Vitals and I&O: Vital Signs Temp 97.6 F 01/11/20 06:06 Pulse 82 01/11/20 08:46 Resp 17 01/11/20 08:00 BP 152/84 01/11/20 08:46 Pulse Ox 96 01/11/20 06:06 Intake & Output 01/10/20 01/11/20 01/11/20 18:59 06:59 18:59 Intake Total 950 520 Balance 950 520 Intake: Oral 950 520 Other: # Voids 2 # Bowel Movements 1 0 Stool Characteristics Soft Soft Soft Brown Brown Brown Active Medications: Current Medications Acetaminophen (Tylenol) 650 mg PO Q4H PRN PRN Reason: Pain (Mild 1-3) Stop: 03/02/20 00:08 Last Admin: 01/10/20 08:54 Dose: 650 mg Albuterol Sulfate (Albuterol 2.5mg/3ml Neb Ud) 2.5 mg HHN Q6HRT [facility] Stop: 03/02/20 12:59 Last Admin: 01/11/20 08:45 Dose: Not Given Albuterol Sulfate (Albuterol 2.5mg/3ml Neb Ud) 2.5 mg HHN Q4HRT PRN PRN Reason: Cough Stop: 03/02/20 10:41 Last Admin: 01/07/20 03:29 Dose: 2.5 mg Amlodipine Besylate (Norvasc) 10 mg PO BID [facility] Stop: 03/02/20 08:59 Last Admin: 01/11/20 08:46 Dose: 10 mg Benztropine Mesylate (Cogentin) 0.5 mg PO BID [facility] Stop: 03/02/20 08:59 Last Admin: 01/11/20 08:45 Dose: 0.5 mg Budesonide (Pulmicort) 0.5 mg HHN BIDRT [facility] Stop: 03/02/20 18:59 Last Admin: 01/11/20 08:45 Dose: Not Given Cephalexin Monohydrate (Keflex) 500 mg PO QID [facility] Stop: 03/05/20 16:59 Last Admin: 01/11/20 08:46 Dose: 500 mg Docusate Sodium (Colace) 200 mg PO BID [facility] Stop: 03/02/20 08:59 Last Admin: 01/11/20 08:46 Dose: 200 mg Guaifenesin (Robitussin) 200 mg PO Q4HR PRN PRN Reason: Cough or Congestion Stop: 03/02/20 11:58 Last Admin: 01/11/20 02:32 Dose: 200 mg Lactulose (Cephulac) 30 gm PO TID PRN PRN Reason: constipation Stop: 03/02/20 08:59 Last Admin: 01/03/20 07:19 Dose: 30 gm Lorazepam (Ativan) 0.5 mg PO Q4HR PRN; Protocol PRN Reason: Agitation Stop: 02/01/20 00:08 Last Admin: 01/11/20 08:46 Dose: 0.5 mg Olanzapine (Zyprexa) 5 mg PO HS [facility]; Protocol Stop: 03/03/20 20:59 Last Admin: 01/10/20 21:27 Dose: 5 mg Zolpidem Tartrate (Ambien) 5 mg PO HS PRN PRN Reason: Insomnia Stop: 03/02/20 00:08 Last Admin: 01/10/20 21:30 Dose: 5 mg General: NAD HEENT: NC/AT Neck: Supple Lungs: CTAB Cardiovascular: RRR, Normal S1, Normal S2 Abdomen: soft, non-tender Extremities: clear Neurological: no change Internal Medicine Assmt/Plan - Assessment Assessment: 1. Tinea 2. HTN 3. COPD 4. Cellulitis - Plan Plan: continue keflex for cellulitis continue diflucan for tinea LFT's are normal discharge planning discussed with social and political studies professor d/w r.n. Nutritional Asmnt/Malnutr-PDOC - Dietary Evaluation Malnutrition Findings (Please click <Entered> for more info): Nutritional Asmnt/Malnutrition Start: 01/07/20 11: 23 Text: Status: Complete Freq: Protocol: Document 01/07/20 15:19 JACKELIN (Rec: 01/07/20 15:22 JACKELIN [id number]) Nutritional Asmnt/Malnutrition Patient General Information Nutritional Screening Low Risk Diagnosis Psychosis with Suicidal Ideations Pertinent Medical Hx/Surgical Hx COPD, HTN Subjective Information Pt is a 69-year-old male admitted on 12/31 d/t suicidal ideations, pt noted to be homeless. Pt is eating an estimated 100% of meals since admit date (x5 days) Per Meal/ Nutrition Activity Record. Dietary is currently providing an estimated 1800 kcals and 60 gm Pro to meet 100% kcal and 92% Pro needs. Per wound care note (01/04), Pt has rash in perineal and inguinal areas. Antifungal powder being used. 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 Anthropometrics HT: 54 WT: 140 LB (63.64 kg) BMI: 24.04 (normal) GI/ Skin Integrity GI: WNL, Soft, Flat, Non- tender BM: 01/03 x1 I/O: 1220/Not Noted Skin: Rash, buttock wounds scabbed over Ochoa: 22 Diet Order: Regular Estimated Energy Needs: ( Geriatric, CBW) 0183-6341 kcals (25-30 kcals/ kg) 65-75g Pro (1.0-1.2 g/kg) 9917-9922 ml (25-30 ml/kg) Current Diet Order/ Nutrition Support Regular Pertinent Medications Albuterol, Pulmicort, Colace, Cephulac Pertinent Labs 01/01: HDL 44, A1c 5.4% POC Glucose 01/01: 88 Nutritional Hx/Data Height 1.63 m Height (Calculated Centimeters) 162.6 Current Weight (lbs) 63.503 kg Weight (Calculated Kilograms) 63.5 Weight (Calculated Grams) 08347.9 [place] Body Weight 120 LB (54.55 kg) % [place] Body Weight 117 Body Mass Index (BMI) 24.0 Weight Status Approriate GI Symptoms Last BM 01/03 x1 Skin Integrity/Comment: Skin: Rash, buttock wounds scabbed over Ochoa: 22 Per wound care note (01/04), Pt has rash in perineal and inguinal areas. Antifungal powder being used. 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 Current %PO Good (75-100%) Estimated Nutritional Goals BEE in Kcals: Using Current wt Calories/Kcals/Kg 25-30 Kcals Calculated 9679-1154 Protein: Using Current wt Protein g/k.0-1.2 Protein Calculated 65-75 Fluid: ml 1483-1597 ml (25-30 ml/kg) Nutritional Problem No current Nutrition Prob Problem No nutrition diagnosis at this time. Etiology N/A Signs/Symptoms: N/A Malnutrition Related to Morbid Obesity Malnutrition related to morbid obesity No Intervention/Recommendation Comments Continue regular diet as tolerated. Expected Outcomes/Goals Expected Outcomes/Goals 1.PO intake to continue to meet >75% of estimated nutritional needs. 2.Monitor PO intake, wt, nutrition related labs, and skin integrity to trend WNL. 3.F/U as low risk in 7-10 days , 01/13-01/16.
--- NOTE | 2020-01-11 17:42 | Discharge Summary ---
DATE OF DISCHARGE: 01/11/2020 IDENTIFYING INFORMATION: The patient is a 69-year-old female. HISTORY OF PRESENT ILLNESS: The patient transferred from [facility] on a hold for danger to self. The patient apparently stated that she wanted to kill herself and everyone else. The patient was extremely paranoid, responding to internal stimuli. She felt that gang such as the [employer] wished to murder her. The patient states she has been compliant with her medication; it is unclear what they were exactly. COURSE IN THE HOSPITAL: The patient was diagnosed with chronic undifferentiated schizophrenia. The patient was seen with Dr. Case at the beginning. Apparently, he started the patient on olanzapine 5 mg at bedtime. The patient also was continued with cephalexin, Pulmicort, Cogentin 0.5 mg twice a day, amlodipine, albuterol inhaler, lactulose and the patient progressively got better. She was no longer psychotic. She was easy to redirect. She was pleasant, cooperative. They found a place at [facility]. So, as the patient was doing well, no longer acting psychotic and is in very good mood, sleeping well, eating well, felt she could be discharged to a lesser level of care. CONDITION ON DISCHARGE: The patient is appropriately dressed and groomed. No suicidal ideation, no homicidal ideation, no paranoia. FINAL DIAGNOSIS: Chronic undifferentiated schizophrenia. MEDICAL DIAGNOSES: As per medical doctor, the patient will be going to [facility]. The patient is able to function to take care of herself. The patient is alert, oriented to place, person and situation and is not sure of the date. The patient will follow up with her psychiatrist, primary care physician and therapist. EXPECTED OUTCOME: Stable if the patient complies with the above. JOB# [id number]
== END 2020-01-11 15:00 | disposition short-term general hospital (02) | DRG 885 ==
LOC: GERO 21:00
PROVIDERS: ADMIT Psychiatry & Neurology Psychiatry; ATTEND Psychiatry & Neurology Psychiatry
DX: F20.5 Residual schizophrenia (principal); R45.851 Suicidal ideations; L03.90 Cellulitis, unspecified; I10 Essential (primary) hypertension; J44.9 Chronic obstructive pulmonary disease, unspecified; B35.9 Dermatophytosis, unspecified; K62.89 Other specified diseases of anus and rectum; Z59.0 Homelessness; Z79.899 Other long term (current) drug therapy
CPT/HCPCS: 82948-90; 83036-90; G0410; J7051; J7613; Z7610